=== PATIENT | male | born 1960 | race Caucasian/White ===

== ENCOUNTER 2017-06-14 06:13 | Day surgery (SDC) | payer MEDICARE ==
[~2017-06-14] VITALS: Ht 162.6 cm; Wt 110.7 kg
[2017-06-14 06:55] VITALS: BP 123/86
[2017-06-14] MEDS ORDERED: DIPH25CA61 PO (07:02)
[2017-06-14] MEDS ORDERED: CALCIUM PO (07:02)
[2017-06-14] MEDS ORDERED: LUPRON (07:02)
[2017-06-14] MEDS ORDERED: OXYC-307 PO (07:02)
[2017-06-14] MEDS ORDERED: SODIUM CHLORIDE 0.9% 1,000 ML IV SCH (07:03)
[2017-06-14] MEDS ORDERED: CEFAZOLIN 1,000 MG IM ONE (07:30)
[2017-06-14] MEDS ORDERED: CEFAZOLIN PMX 1GM/50ML 50 ML IV ONE (07:30)
[2017-06-14] MEDS ORDERED: LIDOCAINE-MPF 1%, 5ML ONE (07:59)
[2017-06-14] MEDS ORDERED: FENTANYL PF 100 MCG/2ML ONE (08:07)
[2017-06-14] MEDS ORDERED: FLUMAZENIL 0.1 MG/1 ML, 5ML ONE (08:07)
[2017-06-14] MEDS ORDERED: NALOXONE 1 MG/ML, 2ML ONE (08:07)
[2017-06-14] MEDS ORDERED: MIDAZOLAM 1 MG/ML, 5ML ONE (08:08)
== END 2017-06-14 11:00 | disposition home or self-care (01) ==
LOC: OUT 06:13
PROVIDERS: ATTEND Urology
DX: C61 Malignant neoplasm of prostate (principal); F17.210 Nicotine dependence, cigarettes, uncomplicated; Z86.14 Personal history of Methicillin resistant Staphylococcus aureus infection; G47.33 Obstructive sleep apnea (adult) (pediatric); J43.9 Emphysema, unspecified
CPT/HCPCS: 36558; 76937; 77001; 99156; 99157; C1750; J0690; J1642; J2250; J3010; J7030; J2310

== ENCOUNTER → 2017-07-03 | Outpatient (CLI) | payer MEDICARE ==
[~2017-07-03] MED LIST: CALCIUM PO; DIPH25CA61 PO; LUPRON; OXYC-307 PO; VISIPAQUE 270 MG/ML, 50ML BOTTLE ONE
== END | disposition home or self-care (01) ==
LOC: RAD 11:59
PROVIDERS: ATTEND Urology
DX: C61 Malignant neoplasm of prostate (principal)
CPT/HCPCS: 36598; 76000; J1642; Q9966

== ENCOUNTER 2017-07-23 10:49 | Day surgery (SDC) | payer MEDICARE ==
[~2017-07-23] VITALS: Ht 165.1 cm; Wt 111.1 kg
[~2017-07-23 10:49] MED LIST changes: -VISIPAQUE 270 MG/ML, 50ML BOTTLE ONE
[2017-07-23] MEDS ORDERED: SODIUM CHLORIDE 0.9% 1,000 ML IV SCH (11:15)
[2017-07-23 11:40] VITALS: BP 109/72
[2017-07-23] MEDS ORDERED: LIDOCAINE 2%, 20ML ONE (11:52)
[2017-07-23] MEDS ORDERED: FENTANYL PF 100 MCG/2ML ONE (12:07)
[2017-07-23] MEDS ORDERED: MIDAZOLAM 1 MG/ML, 5ML ONE (12:07)
== END 2017-07-23 13:25 ==
LOC: OUT 10:49
PROVIDERS: ATTEND Urology
DX: Z45.02 Encounter for adjustment and management of automatic implantable cardiac defibrillator (principal); C25.9 Malignant neoplasm of pancreas, unspecified
CPT/HCPCS: 36589; 77001; 99156; 99157; J2250; J3010; J3490; J7030

== ENCOUNTER → 2017-11-27 | Outpatient (CLI) | payer MEDICARE | END | disposition home or self-care (01) | LOC: PETCFH 11:20 | PROVIDERS: ATTEND Urology | DX: C61 Malignant neoplasm of prostate (principal); R97.21 Rising PSA following treatment for malignant neoplasm of prostate | CPT/HCPCS: 78306; A9503 ==